=== PATIENT | female | born 1955 | race African-American/Black ===

== ENCOUNTER → 2016-11-21 | Outpatient (CLI) | payer MEDICARE, BC ==
[~2016-11-21] MED LIST: AMLODIPINE BESY10 MG PO; ANTIVERT PO; DOXYCYCLINE HY100 M1 PO; HCTZ PO; IBUPROFEN PO; LORTAB 10-5001 EACH PO; MULTI VITAMIN1 EACH PO; ZOVIRAX800 MG PO
--- NOTE | ~2016-11-21 | MR113 ---
[facility] A Service of [facility] & [facility] RADIOLOGY TEXT RESULTS PATIENT: MICHAEL STREETER LOCATION: [facility] : 53 UNIT #: [id number] AGE: [address]: Miguel Gasca MD SEX: F ORDER DR: [id number] [facility] [address] [place], [place] [address] [id number] O MR#: [id number] #: [id number] NAME: MICHAEL STREETER : 1955 SEX: F STUDY DATE/TIME: 11/21/2016 19:14 UNIT: [facility] ROOM: STUDY DESCRIPTION: MR Lumbar Wo Contrast Attending Physician: Miguel Gasca M.D. Referring Physician: Miguel Gasca M.D. Ordering Physician: Miguel Gasca M.D. Primary Care Physician: Generic Doctor Not In System MRI CENTER REPORT This report is preliminary unless electronic signature is present. EXAM Lumbar spine MRI without HISTORY Burning in legs with sharp pain since July 2006 when she had knee replacement surgery. No known injury. History of colon cancer in 2012. COMMENTS MRI of the lumbar spine performed without contrast using routine 1.5T imaging technique. COMPARISON STUDIES There is plain film series from 2001, which will not restore secondary to limitation of the PACS system. FINDINGS Sagittal alignment is essentially normal. The discs are desiccated in particular at L5-S1 where there is fairly severe loss of intervertebral disc height and milder at 2-3, 3-4 and T11-12. Mild marrow endplate degenerative changes in general most prominent at 5-1 where they are predominately type 2. The conus medullaris terminates at L1-2 and is normal. At L1-2, there is minimal disc bulging into inferior foramina but no canal stenosis. Only mild left inferior foraminal narrowing. L2-3, there is bilateral facet degenerative change zgzf-tg-macungjo with mild ligamentum flavum thickening. There is concentric disc bulge with superimposed broad posterior protrusion extending into foramina. Combination of findings result in up to moderate central canal stenosis. There is rhvk-yq-cjxjztik mass effect on the bilateral foramina. Disc material extends into the foramina. [facility] A Service of [facility] & [facility] RADIOLOGY TEXT RESULTS PATIENT: MICHAEL STREETER [id number] : 53 UNIT #: [id number] AGE: [address]: Miguel Gasca MD SEX: F ORDER DR: At L3-4, there is hznt-if-qnekyvdr bilateral facet degenerative change, mild ligamentum flavum thickening with mild concentric disc bulge superimposed broad posterior protrusion and disc material extends into foramina bilaterally. There is yicc-ql-lymixpga central canal stenosis and mass effect on the left greater than right lateral recess. Moderate right and more severe left-side foraminal narrowing. Suspect a component of more focal extrusion to the left side posterolaterally remaining contiguous with the disc and impinging upon expected location of the left L3 root in the foramen. Milder mass effect on the expected location right L3 root in the right foramen. At L4-5, there is moderate left and greater than right-side facet arthritis with mild ligamentum flavum thickening. There is a mild posterior disc bulge more prominent to the left side posterolaterally. Only mild effacement of the thecal sac. Mild left inferior foraminal narrowing. No significant central canal stenosis. At L5-S1, mild right and left side facet degenerative change. There is posterior desiccated disc osteophyte complex but no canal stenosis. Only mild mass effect on the left greater than right lateral recess. Disc osteophyte extends into the foramina and combination of findings result in approximately moderate left and dgaqworw-zo-hnhvsh right-side foraminal impingement. Loss of disc height contributes to this. IMPRESSION Multilevel lumbar degenerative changes are detailed above. Canal stenosis is most prominent at L2-3 estimated up to moderate. Multilevel foraminal impingement is present most severe on the left side at L3-4. It is most severe on the right side and at L5-S1. Please refer to the xracb-ni-gwoyi description of findings. Dictated by... Machelle Barrios M.D. THIS IS AN ELECTRONICALLY VERIFIED REPORT Machelle Barrios M.D. at 11/25/2016 4:24 PM Hola TD: 11/25/2016 15:01 JOB #: [id number] MRI CENTER REPORT Page 1 of 1 COPY
== END | disposition home or self-care (01) ==
LOC: CMRI 17:55
DX: M48.06 Spinal stenosis, lumbar region (principal); M47.896 Other spondylosis, lumbar region
CPT/HCPCS: 72148